=== PATIENT | female | born 1950 | race Caucasian/White ===

== ENCOUNTER → 2017-04-14 | Outpatient (CLI) | payer MEDICARE, BC ==
[~2017-04-14] MED LIST: LEVOTHYROXINE0.1 MG PO; LISINOPRIL 20MG20 MG PO; LISINOPRIL AND1 TAB PO; PRAVASTATIN 40M40 MG PO; TYLENOL W/CODEI1 TA2 PO
[2017-04-14 17:12] LABS: HEMOGLOBIN 13.9 g/dL (12.2-16.2); LYMPH # 3.3 K/mm3 (0.7-4.5); LYMPH % 35.5 % (10-50.0)
--- NOTE | 2017-04-14 17:15 | RADIOLOGY REPORT PS360 ---
CHEST(2 VIEWS-NOT PORTABLE) HISTORY: Hypertension PRE-OP, HYPERTENSION ORDERING PHYSICIAN: Yadiel Rutherford MD PATIENT AGE: 66 years COMPARISON: 09/08/2016 FINDINGS: Unremarkable heart size. There is a parenchymal opacity in the left lung base which appears slightly more prominent compared to the previous exam measuring 2.6 cm. This may be due to an area of parenchymal fibrosis with associated fat pad. Cannot exclude a developing lesion. CT may be of further value. There are some chronic changes in the right lung base as well. Degenerative changes are present in the thoracic spine. IMPRESSION: 1. Chronic opacity left lung base somewhat more apparent probably related to pericardial fat pad with fibrotic change. Consider CT for further evaluation as the nodule is somewhat more apparent. 2. Chronic changes right lung base.
[2017-04-14 17:26] LABS: BUN 25 mg/dL (7-18)
[2017-04-14 17:39] LABS: GFR (ESTIMATED) 38 ML/MIN (59-)
== END ==
LOC: LAB 16:38
PROVIDERS: Obstetrics & Gynecology
DX: N95.0 Postmenopausal bleeding (principal); Z01.812 Encounter for preprocedural laboratory examination